=== PATIENT | female | born 2000 | race Caucasian/White ===

== ENCOUNTER 2024-03-03 03:25 | Emergency (ER) | payer SELFPAY ==
[~2024-03-03] VITALS: Ht 162.6 cm; Wt 70.0 kg
[2024-03-03 03:32] VITALS: TEMP 98.3; O2SAT 97
[2024-03-03 03:52] VITALS: BP 113/81; PULSE 78; RESP 18; O2SAT 98
== END 2024-03-03 03:57 | disposition home or self-care (01) ==
LOC: ER 03:42
DX: R04.0 Epistaxis (principal); D64.9 Anemia, unspecified; Z88.2 Allergy status to sulfonamides
CPT/HCPCS: 99283